=== PATIENT | male | born 1985 | race Hispanic/Latino ===

== ENCOUNTER 2018-01-02 13:12 | Day surgery (SDC) | payer SELFPAY ==
[2018-01-02] MEDS ORDERED: Dexamethasone 20 MG/5 ML VIAL ONE (15:30)
[2018-01-02] MEDS ORDERED: PROPOFOL 200 MG/20 ML VIAL ONE (15:30)
[2018-01-02] MEDS ORDERED: Ondansetron HCl/PF 4 MG/2 ML Vial ONE (15:30)
[2018-01-02] MEDS ORDERED: Glycopyrrolate 0.2 MG/ML 5 ML SYRINGE ONE (15:30)
[2018-01-02] MEDS ORDERED: Ketorolac Tromethamine 30 MG/ML VIAL ONE (15:30)
[2018-01-02] MEDS ORDERED: Lidocaine 1% PF 5 ML VIAL ONE (15:30)
--- NOTE | 2018-01-02 16:00 | CT ---
CT CONTRAST ENHANCED ABDOMEN AND PELVIS: 01/02/; HISTORY: Umbilical hernia. Contrast enhanced CT images of the abdomen and pelvis is obtained after administration of IV and oral contrast. The lung bases are unremarkable. No evidence of free intraperitoneal air is seen. The liver is unremarkable. Splenic calcified granuloma is seen. The gallbladder and pancreas are unre markable. Adrenal glands and kidneys are unremarkable. There is an umbilical hernia with some intraperitoneal fat extending in. No evidence of bowel obstruc tion or entrapment seen. A normal appendix is visualized. No evidence of periaortic or pelvic lymphadenopathy is seen. IMPRESSION: Umbilical hernia, otherwise unremarkable CT images abdomen and pelvis. POS: [facility]
[2018-01-02] MEDS ORDERED: ISOVUE-370 76%-LOCM 1 ML ONE (16:32)
[2018-01-02] MEDS ORDERED: Iopamidol 370 76% 50 ML VIAL FS ONE (16:32)
[2018-01-02] MEDS ORDERED: Bupivacaine/Epinephrine 0.25% 30 ML VIAL ONE (17:07)
[2018-01-02] MEDS ORDERED: CEFAZOLIN/Water 2 GM/20 ML SYRINGE SLOW IVP SCH (17:45)
--- NOTE | 2018-01-02 17:54 | HP ---
DATE OF ADMISSION: 01/02/2018 CHIEF COMPLAINT: Abdominal pain. HISTORY OF PRESENT ILLNESS: Mr. Mustafa is a 32-year-old man with an umbilical hernia, diagnosed lizabeth k in July. For the past week, this has been hard and painful. He has been unable to push it lizabeth k in and it is causing him increasing distress. He states that when the ER doctor tried to push it i n, it caused pain throughout his abdomen, but usually the pain is just at the belly button. He denie s fevers, chills, nausea or vomiting and has been eating normally and having normal bowel movements. PAST MEDICAL HISTORY: None. MEDICATIONS: None. ALLERGIES: He had a reaction to an unknown medication as a child, but does not remember what it was. PAST SURGICAL HISTORY: I and D of perirectal abscess several years ago. He is completely healed fro m that. FAMILY HISTORY: Diabetes in a brother. SOCIAL HISTORY: He does not smoke, drink or use illicit drugs. 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 REVIEW OF SYSTEMS: Ten system review of systems is negative except per HPI. PHYSICAL EXAMINATION: VITAL SIGNS: The patient is afebrile. Vital signs are unremarkable. HEENT: Normal. NECK: Supple without lymphadenopathy or thyroid nodules. HEENT: He is not flushed or toxic in appearance. He is not jaundiced or icteric. HEART: Regular in its rate and rhythm without murmurs, rubs or gallops. LUNGS: Clear to auscultation bilaterally. ABDOMEN: Soft and nondistended. There is no generalized tenderness, but he is extremely tender with attempts to reduce his firm irreducible umbilical hernia. The skin overlying the hernia is slightly reddened. No other palpable hernias. He does have what feels like a small lipoma in the right lowe r quadrant, which is nontender. EXTREMITIES: Warm and well perfused without edema. NEUROLOGIC: No focal deficits. PSYCHIATRIC: Alert, oriented and appropriate. LABORATORY AND X-RAY FINDINGS: CT images are reviewed and I agree with the written report. He has a fat containing umbilical hernia. No evidence of bowel involvement and no evidence of obstruction. ASSESSMENT: Incarcerated umbilical hernia, which is very symptomatic. Skin is rather stretched out over the hernia and potentially at risk. There does not appear to be any bowel involvement, so this is not emergent, but I have recommended that he go ahead and have this repaired. He ate lunch at 10: 30, so we will schedule the surgery for 06:30. We will likely use mesh to reinforce the repair, isabel duarte given his physically strenuous job. The operation and its inherent risks were discussed with the patient and his family and these include, but are not limited to bleeding, infection, risks of an esthesia, damage to nearby structures including intestine and blood vessels, recurrence of the hernia and mesh infection requiring mesh explantation. They understand and accept these risks and wish to proceed. I have ordered [employer] online program coordinator to the OR.
[2018-01-02] MEDS ORDERED: CEFAZOLIN/Water 2 GM/20 ML SYRINGE ONE (18:17)
[2018-01-02] MEDS ORDERED: Fentanyl 100 MCG/2 ML VIAL ONE (18:29)
--- NOTE | 2018-01-04 15:22 | OP ---
PROCEDURE: Repair of incarcerated umbilical hernia with mesh on 01/02/2018. PREOPERATIVE DIAGNOSIS: Umbilical hernia, incarcerated. POSTOPERATIVE DIAGNOSIS: Umbilical hernia, incarcerated. HISTORY: Mr. Mustafa is a 33-year-old man with an umbilical hernia since last fall, which has recent ly become very painful. He came to the emergency room where he was noted to have an incarcerated her alaina with some discoloration of the overlying skin, for which an urgent repair was recommended. No saran wel involvement was seen. PROCEDURE IN DETAIL: After informed consent was obtained and appropriate preoperative antibiotics ad ministered, the patient was taken to the operating room. He was placed in supine position and anesth esia was administered. He was prepped and draped in a standard sterile fashion and local anesthesia infused to the skin and subcutaneous tissues overlying the umbilical hernia. A circumumbilical incis ion was made and dissection carried down to the hernia sac, which was dissected off of the overlying skin and surrounding subcutaneous tissues. This was traced down to the fascial defect, which was rel atively small. The hernia sac was opened and incarcerated omentum identified. Some adhesions were t aken down, but due to the inflamed nature of the omentum that was unable to be reduced. Therefore, t he inflamed omentum was ligated and resected and the omental stump was able to be reduced through the fascial defect. The hernia sac was then excised and a preperitoneal space developed bluntly. Since the defect itself was small, measuring under 2 cm. A 4.3 cm Ventralex patch was selected and placed into the preperitoneal space. The fascia was closed incorporating the central strap into the closur e and the excess strap trimmed. The subcutaneous tissues were irrigated and hemostasis verified. Ad ditional local anesthesia was infused for postoperative pain control. The umbilicus was tacked down to the fascia and the subcutaneous tissues reapproximated with 3-0 Monocryl suture. The skin was nadya sed with 4-0 subcuticular Monocryl suture. Dermabond dressings were applied and following which a pr essure dressing was placed and the patient was extubated and taken to the recovery room in good condi tion. Estimated blood loss was minimal. There were no complications. There were no specimens.
== END 2018-01-02 20:42 | disposition home or self-care (01) ==
LOC: ERS 13:12 → SDC/OP 17:58
PROVIDERS: ATTEND Surgery
PROC: 0WUF0JZ Supplement Abdominal Wall with Synthetic Substitute, Open Approach (ICD-10-PCS; principal; 2018-01-02)
DX: K42.0 Umbilical hernia with obstruction, without gangrene (principal); Z88.0 Allergy status to penicillin; Z98.890 Other specified postprocedural states
CPT/HCPCS: 74177; J1100; J1885; J2001; J2405; J2704; J3010

== ENCOUNTER 2018-11-26 21:14 | Emergency (ER) | payer OTHER, SELFPAY ==
[2018-11-26 22:54] LABS: #Lymphocytes 0.6 thou/uL (1.20-3.40); #Monocytes 0.4 thou/uL (0.11-0.59); #Neutrophils 8.6 thou/uL (1.40-6.50); %Basophils 0.1 % (0.0-1.0); %Eosinophils 0.5 % (0.0-10.0); %Lymphocytes 6.3 % (21.0-51.0); %Monocytes 4.1 % (0.0-10.0); Hemoglobin 16.5 g/dL (14.0-18.0); Mean Corpuscular HGB CONC 32.9 g/dL (32.0-36.0); Mean Corpuscular Hemoglobin 27.7 pg (27.0-31.0); Mean Corpuscular Volume 84.3 fL (78.0-98.0); Mean Platelet Volume 9.1 fL (7.4-10.4); Platelet Count 252 thou/uL (130-400); RBC Distribution Width 11.7 % (11.5-14.5); Red Blood Cell (RBC) Count 5.96 mill/uL (4.70-6.10); White Blood Cell (WBC) Count 9.6 thou/uL (4.8-10.8)
[2018-11-26] MEDS ORDERED: Pantoprazole 40 MG VIAL ONE (23:16)
[2018-11-26] MEDS ORDERED: Ondansetron PF 4 MG/2 ML Vial ONE (23:16)
[2018-11-26] MEDS ORDERED: Morphine 4 MG/ML VIAL ONE (23:16)
[2018-11-26 23:24] LABS: ALT (SGPT) 94 U/L (8-55); AST (SGOT) 51 U/L (5-34); Albumin 5.4 g/dL (3.5-5.0); Alkaline Phosphatase 94 U/L (40-150); Anion Gap 17 mmol/L (10-20); BUN (Urea Nitrogen) 18 mg/dL (8.9-20.6); Bilirubin, Total 2.1 mg/dL (0.2-1.2); Calc. Creatinine Clearance 0 mL/min (70-130); Calcium 10.2 mg/dL (7.8-10.44); Carbon Dioxide 23 mmol/L (22-29); Chloride 105 mmol/L (98-107); Estimated GFR-MDRD 81; Globulin 3.4 g/dL (2.4-3.5); Glucose 141 mg/dL (70-105); Potassium 3.9 mmol/L (3.5-5.1); Protein, Total 8.8 g/dL (6.0-8.3); Sodium 141 mmol/L (136-145)
[2018-11-26 23:46] LABS: Bacteria/HPF None Seen HPF (None Seen); Hyaline Casts/LPF 4-6 HYALINE CAST LPF (0-3 Hyaline); Pathc Cast-AUWi Flag 0.54 (0-2.49); Squamous Epithelial 0-3 HPF (0-3); WBC/HPF 0-3 HPF (0-3)
[2018-11-26 23:48] LABS: Bilirubin Small (Negative); Blood, Urine Negative (Negative); Clarity TURBID (Clear); Glucose, Urine (Dipstick) Negative (Negative); Leukocyte Trace (Negative); Nitrite Negative (Negative); Protein, Urine (Dipstick) 30 mg/dL (Neg-Trace); Specific Gravity, Urine 1.033 (1.002-1.036); Urobilinogen 0.2 mg/dL (0.2-1.0); pH, Urine 5.5 (5.0-9.0)
--- NOTE | 2018-11-26 23:56 | ULT ---
RIGHT UPPER QUADRANT ULTRASOUND: 11/26/18 INDICATION: Abdominal pain. COMPARISON: None. FINDINGS: Overlying bowel gas slightly limits the exam. Pancreas is not well seen. Liver is diffusely echogenic. Visualized gallbladder is unremarkable. No sonographic Wise's sign is reported. The common bile alejandra t measured 5 mm. The right kidney measures 12 cm in length. IMPRESSION: 1. Fatty liver. 2. Limitation of exam due to overlying bowel gas. POS: [facility]
[2018-11-27 00:59] LABS: HBCM Index 0.05 S/CO (0-0.79); HBSAg Index 0.23 S/CO (0-0.99); Hep A IgM AB Non-Reactive (NonReactive); Hep A IgM S/CO 0.17 S/CO (0-0.79); Hep B Surf Ag Non-Reactive S/CO (NonReactive); Hep C IgG Ab Non-Reactive (NonReactive); Hep C Index 0.07 S/CO (0-0.79); Hepatitis B Core IgM Abs Non-Reactive (NonReactive)
== END 2018-11-27 00:40 | disposition home or self-care (01) ==
LOC: ERS 21:14
DX: R11.2 Nausea with vomiting, unspecified (principal); R19.7 Diarrhea, unspecified
CPT/HCPCS: 36415; 36416; 76705; 80053; 80074; 81003; 81015; 85025; 87086; 96372; 96374; 96375; C9113; J0500; J2270; J2405

== ENCOUNTER 2021-09-25 19:31 | Emergency (ER) | payer SELFPAY ==
[2021-09-26 16:21] LABS: SARS-CoV-2 PCR by NAA DETECTED (NotDetected)
== END 2021-09-25 21:03 | disposition home or self-care (01) ==
LOC: ERS 19:31
DX: U07.1 COVID-19 (principal); F17.200 Nicotine dependence, unspecified, uncomplicated
CPT/HCPCS: 87804; 99284; U0003; U0005

== ENCOUNTER 2025-01-12 16:36 | Emergency (ER) | payer SELFPAY ==
[2025-01-12] MEDS ORDERED: Ondansetron PF 4 MG/2 ML Vial ONE (17:10)
[2025-01-12] MEDS ORDERED: Pantoprazole 40 MG VIAL ONE (17:10)
[2025-01-12] MEDS ORDERED: Lidocaine Viscous Sol 2% 15 ml UD Cup ONE (17:10)
[2025-01-12] MEDS ORDERED: Mag-Al 1200 mg/1200 mg/30 ML UDCUP ONE (17:10)
[2025-01-12 17:12] LABS: #Basophils 0.11 10x3/uL (0.0-0.2); %Basophils 0.9 % (0.0-1.0); %Eosinophils 2.5 % (0.0-10.0); %Lymphocytes 28.6 % (21.0-51.0); %Monocytes 6.8 % (0.0-10.0); Hematocrit 46.9 % (42.0-52.0); Hemoglobin 16.1 g/dL (14.0-18.0); Mean Corpuscular HGB CONC 34.3 g/dL (32.0-36.0); Mean Corpuscular Hemoglobin 28.5 pg (27.0-31.0); Mean Corpuscular Volume 83.2 fL (78.0-98.0); Mean Platelet Volume 11.4 fL (7.4-10.4); Platelet Count 250 10x3/uL (130-400); RBC Distribution Width 12.6 % (11.5-14.5); Red Blood Cell (RBC) Count 5.64 mill/uL (4.70-6.10)
[2025-01-12 17:44] LABS: Troponin I Less than 0.010 ng/mL (< 0.028)
[2025-01-12 18:38] LABS: ALT (SGPT) 54 U/L (Less than 45); AST (SGOT) 39 U/L (11-34); Albumin 4.6 g/dL (3.1-4.5); Alkaline Phosphatase 99 U/L (40-110); Anion Gap 13 mmol/L (10-20); BUN (Urea Nitrogen) 16 mg/dL (8.9-20.6); Bilirubin, Total 0.8 mg/dL (0.3-1.2); Calc. Creatinine Clearance 0 mL/min (70-130); Carbon Dioxide 23 mmol/L (22-29); Chloride 107 mmol/L (98-107); Estimated GFR 111; Globulin 3.1 g/dL (2.4-3.5); Glucose 108 mg/dL (70-105); Potassium 4.2 mmol/L (3.5-5.1); Protein, Total 7.7 g/dL (6.0-8.3); Sodium 139 mmol/L (136-145)
== END 2025-01-12 19:08 | disposition home or self-care (01) ==
LOC: ERS 16:36
DX: R13.10 Dysphagia, unspecified (principal); F17.210 Nicotine dependence, cigarettes, uncomplicated; F17.290 Nicotine dependence, other tobacco product, uncomplicated; Z55.6 Problems related to health literacy; Z75.8 Other problems related to medical facilities and other health care
CPT/HCPCS: 36415; 71045; 80053; 84484; 85025; 93005; 96374; 96375; J2405; J2470